=== PATIENT | female | born 1950 | race Caucasian/White ===

== ENCOUNTER 2023-04-08 08:08 | Day surgery (SDC) | payer MEDICARE, OTHER ==
[2023-04-01 15:42] LABS: PRE OP PROTIME 10.9 SECONDS (9.0-12.0)
[2023-04-01 15:44] LABS: ALBUMIN 3.9 G/DL (3.4-5.0); ALBUMIN/GLOBULIN RATIO 1.1 (1.1-1.5); ALKALINE PHOSPHATASE 113 IU/L (46-116); BLOOD UREA NITROGEN 9 MG/DL (7-18); BUN/CREATININE RATIO 11.7 (10.0-20.0); CALCIUM 8.7 MG/DL (8.5-10.1); CHLORIDE 105 MMOL/L (99-107); CREATININE 0.77 MG/DL (0.40-0.90); PRE OP ALT 37 U/L (30-65); PRE OP ANION GAP 9 (8-16); PRE OP AST 21 U/L (10-37); PRE OP BILIRUB, TOTAL 0.7 MG/DL (0.0-1.0); PRE OP GLUCOSE 102 MG/DL (70-104); PRE OP POTASSIUM 3.8 MMOL/L (3.4-5.1); PRE OP SODIUM 142 MMOL/L (135-145); TOTAL CARBON DIOXIDE 28.4 MMOL/L (24-32); TOTAL PROTEIN 7.4 G/DL (6.4-8.2); eGFR 74 ML/MIN
[2023-04-01 15:57] LABS: BASOPHILS % (AUTO) 0.4 % (0-1); EOSINOPHILS % (AUTO) 0.5 % (0-6); LYMPHOCYTES # (AUTO) 1.8 X10'3 (1.1-4.8); LYMPHOCYTES % (AUTO) 17.9 % (21-51); MEAN CORPUSCULAR HEMOGLOBIN 26.5 PG (27.0-31.0); MEAN CORPUSCULAR HGB CONC 32.9 g/dL (33.0-36.5); MEAN CORPUSCULAR VOLUME 80.6 FL (78-98); MEAN PLATELET VOLUME 9.1 FL (7.4-10.4); MONOCYTES # (AUTO) 0.7 X10'3 (0-0.9); MONOCYTES % (AUTO) 6.5 % (2-12); NEUTROPHILS # (AUTO) 7.6 X10'3 (1.8-7.7); NEUTROPHILS % (AUTO) 74.7 % (42-75); PRE OP HEMATOCRIT 43.6 % (35.0-45.0); PRE OP HEMOGLOBIN 14.4 g/dL (12.0-16.0); PRE OP PLATELET COUNT 311 X10'3 (140-440); PRE OP WHITE BLOOD COUNT 10.2 10'3 (4.8-10.8); RED BLOOD COUNT 5.41 X10'6 (4.20-5.60); RED CELL DISTRIBUTION WIDTH 14.3 % (11.5-14.5)
[2023-04-08] VITALS (18 sets, daily range): BP systolic 126–159; BP diastolic 53–75; PULSE 50–97; RESP 11–21; TEMP 98.3; O2SAT 95–100
[~2023-04-08] VITALS: Ht 175.3 cm; Wt 82.6 kg
[~2023-04-08 08:08] MED LIST: CALCIUM; COQ10; LEVO88TA39 PO; ROSU10TA28 PO; VITAMIN A; VITAMIN C; VITAMIN D3; ceFAZolin/D5W- 1GM premix 50 ML IV ONE; famotidine 20mg tablet PO ONE; ringers solution, lacted 1,000 ML IV SCH
[2023-04-08] MEDS ORDERED: BUPIVAcaine 2.5mg/ml inj 50ml vial (contains preservative) ONE (09:47)
[2023-04-08] MEDS ORDERED: propofol inj 20 ML IV ONE (09:53)
[2023-04-08] MEDS ORDERED: fentaNYL/PF 50MCG/1 ML 2ML syringe ONE (09:53)
[2023-04-08] MEDS ORDERED: midazolam 1 mg/ML 2ml injection ONE (09:53)
[2023-04-08] MEDS ORDERED: meperidine/PF 25mg/ml syringe IV PRN ×3 (09:55)
[2023-04-08] MEDS ORDERED: proCHLORperazine 10 MG/2 ml inj IV PRN (09:55)
[2023-04-08] MEDS ORDERED: ondansetron/PF 4mg/2ml inj IV PRN (09:55)
[2023-04-08] MEDS ORDERED: ringers solution, lacted 1,000 ML IV SCH (09:55)
[2023-04-08] MEDS ORDERED: morphine 4 MG/ML inj SYRINge IV PRN (09:55)
[2023-04-08] MEDS ORDERED: morphine 2 MG/ML inj. syringe IV PRN (09:55)
[2023-04-08] MEDS ORDERED: LIDOcaine 2% (20mg/ml) 5ml vial ONE (09:56)
[2023-04-08] MEDS ORDERED: sevoflurane 250ml liquid IH ONE (09:56)
[2023-04-08] MEDS ORDERED: dexamethasone sod phosphate 4mg/ml inj. ONE (10:18)
[2023-04-08] MEDS ORDERED: BUPIVAcaine 0.25% w/Epi /PF 30ml vial IJ ONE (10:49)
[2023-04-08] MEDS ORDERED: ondansetron/PF 4mg/2ml inj ONE (10:53)
== END 2023-04-08 13:39 | disposition home or self-care (01) ==
LOC: PAS 08:08
PROVIDERS: ATTEND Surgery
DX: C50.112 Malignant neoplasm of central portion of left female breast (principal); E03.9 Hypothyroidism, unspecified; Z98.890 Other specified postprocedural states; Z79.899 Other long term (current) drug therapy; Z79.01 Long term (current) use of anticoagulants
CPT/HCPCS: 19301; 36415; 80053; 82948; 85025; 85610; 85730; 93005; J0690; J1100; J2250; J2405; J2704; J3010; J3490; J7030; J7120; S0020; Z7506; Z7508; Z7512; A4215; A4618; A6449; A7000